=== PATIENT | female | born 1960 ===

== ENCOUNTER 2017-02-15 09:50 | Emergency (ER) | payer OTHER ==
[2017-02-15 09:56] VITALS: RESP 18; TEMP 98.8; BMI 26.4
[2017-02-15] MEDS ORDERED: Sodium Chloride 0.9% 1,000 ML IV SCH (10:30)
[2017-02-15 10:33] LABS: BASO # 0.02 K/mm3 (0.0-2.0); BASO % 0.2 % (0.0-3.0); EOS # 0.2 (0.0-0.7); EOS % 2.4 % (1.5-5.0); GRAN # 7.31 (1.4-6.5); GRAN % 77.5 % (50.0-68.0); HEMOGLOBIN 13.4 gm/dL (12.0-16.0); LYMPH # 1.1 (1.2-3.4); MEAN CELL VOLUME 87.5 fL (80.0-105.0); MEAN CORPUSCULAR HEMOGLOBIN 29.8 pg (25.0-35.0); MEAN CORPUSCULAR HGB CONC 34.1 g/dl (31.0-37.0); MEAN PLATELET VOLUME 9.9 fl (7.0-11.0); MONO # 0.8 (0.1-0.6); MONO % 7.9 % (1.0-6.0); PLATELET COUNT 204 10^3/uL (120.0-450.0); RBC 4.49 10^6/uL (3.5-6.1); RED CELL DISTRIBUTION WIDTH 13.1 % (11.5-14.5); URINE BILIRUBIN NEGATIVE (NEGATIVE); URINE BLOOD TRACE-INTACT (NEGATIVE); URINE GLUCOSE (UA) NEGATIVE (NEGATIVE); URINE LEUKOCYTE ESTERASE NEGATIVE Leu/uL (NEGATIVE); URINE NITRATE NEGATIVE (NEGATIVE); URINE PROTEIN NEGATIVE mg/dL (<30 mg/dL); URINE UROBILINOGEN 0.2 E.U./dL (<1 E.U./dL); WHITE BLOOD COUNT 9.4 10^3/ul (4.5-11.0)
[2017-02-15 10:37] LABS: URINE APPEARANCE CLEAR (CLEAR); URINE COLOR LIGHT YELLOW (YELLOW); URINE RBC NEGATIVE /hpf (0-2); URINE WBC NEGATIVE /hpf (0-6)
[2017-02-15] MEDS ORDERED: Iohexol 240 (50 ml) ONE (10:39)
[2017-02-15 10:41] LABS: ALB/GLOB RATIO 1.3 (1.1-1.8); ALBUMIN 4.3 g/dL (3.0-4.8); ALT/SGPT 27 U/L (7-56); AST/SGOT 23 U/L (15-39); BLOOD UREA NITROGEN 10 mg/dL (7-21); CALCIUM 9.2 mg/dL (8.4-10.5); GFR AFRICAN-AMERICAN > 60; GFR NON-AFRICAN AMERICAN > 60
--- NOTE | 2017-02-15 11:03 | ED PDOC ---
Arrival/HPI - General Chief Complaint: Abdominal Pain Time Seen by Provider: 02/15/17 10:10 Historian: Patient - History of Present Illness Narrative History of Present Illness (Text): 02/15/17 11:03 A 56 year old female, whose past medical history includes asthma, s/p cholecystectomy, presents to the emergency department complaining of left upper quadrant abdominal pain that started yesterday morning. Notes taking advil with minimal relief and pain has worsened and is now constant since yesterday morning. Denies chest pain or shortness of breath. Denies lower abdominal pain. Reports sudden "cramps" diffusely intermittently. Denies urinary symptoms. Denies vaginal bleeding or discharge. States she has prior history of diverticulitis but symptoms appear different than previous episodes as it is higher than past episodes. Pain does not radiate to back or chest. No pleuritic pain. PMD: Dr. Rodriguez Time/Duration: 24 hours Symptom Onset: Sudden Symptom Course: Unchanged Activities at Onset: Rest Context: Home Past Medical History - Provider Review Nursing Documentation Reviewed: Yes - Cardiac Hx Cardiac Disorders: No - Pulmonary Hx Respiratory Disorders: Yes Hx Asthma: Yes Hx Bronchitis: Yes - Neurological Hx Neurological Disorder: Yes Hx Migraine: Yes - HEENT Other/Comment: SINUS SX - Musculoskeletal/Rheumatological Hx Falls: No - Gastrointestinal Hx Diverticulitis: Yes - Psychiatric Hx Substance Use: No - Surgical History Hx Appendectomy: Yes Hx Cholecystectomy: Yes Hx Musculoskeletal Surgery: Yes (left knee) - Anesthesia Hx Anesthesia: Yes Hx Anesthesia Reactions: Yes Hx Malignant Hyperthermia: No Family/Social History - Physician Review Nursing Documentation Reviewed: Yes Family/Social History: No Known Family HX Smoking Status: Former Smoker Hx Alcohol Use: No Hx Substance Use: No Allergies/Home Meds Allergies/Adverse Reactions: Allergies Penicillins Allergy (Verified 02/15/17 09:56) RASH Sulfa (Sulfonamide Antibiotics) Allergy (Verified 02/15/17 09:56) RASH Home Medications: Home Meds Medication Instructions Recorded Confirmed Acetaminophen/Butalbital/Caf 1 tab PO PRN PRN 11/14/15 02/15/17 [Fioricet] Budesonide/Formoterol Fumarate 1 aer IH BID 11/14/15 02/15/17 [Symbicort] Montelukast [Singulair] 10 mg PO HS 11/14/15 02/15/17 Propranolol HCl [Inderal Xl] 80 mg PO DAILY 11/14/15 02/15/17 Review of Systems - Review of Systems Constitutional: absent: Fatigue, Weight Change, Fevers, Night Sweats Eyes: absent: Vision Changes ENT: absent: Hearing Changes Respiratory: absent: SOB Cardiovascular: absent: Chest Pain, [place] Gastrointestinal: Abdominal Pain. absent: Constipation, Diarrhea, Nausea, Vomiting, Appetite Changes, Hematochezia Genitourinary Female: absent: Hematuria, Urine Output Changes Musculoskeletal: absent: Back Pain Skin: absent: Rash Neurological: absent: Headache, Dizziness Hemo/Lymphatic: absent: Easy Bleeding Psychiatric: absent: Anxiety Physical Exam - Physical Exam Narrative Physical Exam (Text): 02/15/17 11:01 Head: Atraumatic. Normocephalic. Eyes: PERRL. EOMI. Conjunctivae are not pale. ENT: Mucous membranes are moist and intact. Oropharynx is clear and symmetric. Neck: Supple. Full ROM. No meningeal signs. Cardiovascular: Regular rate. Regular rhythm. No pathologic murmurs. Distal pulses intact. Pulmonary/Chest: No evidence of respiratory distress. Clear to auscultation bilaterally. No wheezing, rales or rhonchi. Abdominal: Focal tenderness LUQ. No LLQ pain. No R sided abdominal pain. No organomegaly. Good bowel sounds. Localized rebound and guarding to left upper quadrant Back: No CVA tenderness. Extremities: No edema. No cyanosis. No clubbing. Full range of motion in all extremities. No calf tenderness. Skin: Skin is warm and dry. No petechiae. No purpura. Neurological: Alert, awake, and oriented. Normal speech. Motor and sensory exam intact. Psychiatric: Good eye contact. Normal interaction, affect, and behavior. Appropriate. Good insight and interaction. Denies depressive symptoms. Vital Signs Reviewed: Yes Vital Signs Temp Pulse Resp BP Pulse Ox 02/15/17 18:00 66 18 122/71 98 02/15/17 16:35 69 18 124/68 98 02/15/17 15:10 67 18 129/75 98 02/15/17 13:52 67 18 129/75 98 02/15/17 12:14 65 18 128/71 98 02/15/17 10:59 68 18 132/79 97 02/15/17 09:53 98.8 F 76 18 134/82 97 Temperature: Afebrile Blood Pressure: Normal Pulse: Regular Respiratory Rate: Normal Appearance: Positive for: Non-Toxic, Uncomfortable Pain Distress: Moderate Mental Status: Positive for: Alert and Oriented X 3 Medical Decision Making ED Course and Treatment: 02/15/17 10:59 Impression: A 56 year old female with left upper quadrant abdominal pain. Differential Diagnosis included but are not limited to: diverticulitis vs. colitis vs. renal colic Plan: -- CT abd/pelvis -- labs -- Urinalysis -- Pepcid, IV fluids -- Reassess and disposition Prior Visits: Notes and results from previous visits were reviewed. Patient was last seen in the emergency department on 06/16/16 for evaluation of cough and congestion. Progress Notes: Patient's history reviewed and on examination she has severe left upper quadrant abdominal pain. Denies chest pain or sob. Denies lower abdominal pain. Given severity of pain, I have discussed treatment options and imaging studies in depth with patient. She is agreeable to CT with oral contrast although she does not want to have IV narcotics. I have discussed with her alternative pain medication options including Toradol, although due to a past history of severe asthma she does not wish to have IV toradol, but is agreeable to motrin. Based on severity of pain, ct abdomen ordered. 02/15/17 13:00 CT Abdomen and Pelvis without intravenous contrast Creator : Tyrese Hale MD IMPRESSION: Acute diverticulitis of the mid descending colon. No abscess. No free intraperitoneal air. Mural thickening of the inferior rectum. Please correlate with colonoscopy to rule out colonic neoplasm. Mild hepatomegaly with diffuse fatty infiltration of the liver. Status post cholecystectomy. 1.3 cm left adrenal nodule, likely adrenal adenoma. 02/15/17 14:10 I have discussed with patient CT reading WELL LIMITATIONS OF CT in certain diagnosis. On reexamination, patient has persistent severe left upper quadrant abdominal pain. Based on severity of pain, offered IV pain medication, which patient continues to refuse citing fear of addiction and side effect. Advised admission to hospital. Started patient on IV antibiotics. Will consult gastroenterology and surgery based on pain. In laymen's terms I have reviewed all of the patient's labs as well as limitations in laboratory evaluation at times in evaluating severity of disease. Based on SEVERE PERSISTENT PAIN I have discussed with patient risk of abscess, perforation, rupture, sepsis, although currently not hypotensive or febrile, although pain remains severe. I have recommended admission to hospital for surgical evaluation, serial exams, GI consultation as well as for iv hydration and iv antibiotics. I have again reviewed with patient potential limitations of CT given persistent severity of pain. She states that she is comfortable if she is not being palpated. She is initially agreeable to admission, but subsequently communicated to admitting physician Dr. Quiroz and surgical team that she wishes to sign out against medical advice, stating that she has had a PREVIOUS "bad experience" from a prior admission. She understands the recommendation for admission and risks of signing out against medical advice. She is able to repeat back risks as well as potential limitations of lab and imaging studies due to severity of pain with palpation. She received initial dose of iv antibiotics, and has signed out AGAINST MEDICAL ADVICE. She has been given prescription of Levaquin and Metronidazole, and I have discussed with her that given current exam oral antibiotics may not be sufficient treatment and is not recommended treatment plan. Witnesses present, patient expresses understanding of recommended treatment plan and risks. She states she will follow-up with her physician Dr. Rodriguez tomorrow. 02/15/17 18:30 - Lab Interpretations Lab Results: 02/15/17 10:26 02/15/17 10:26 Lab Results 02/15/17 10:26: Sodium 140, Potassium 3.9, Chloride 103, Carbon Dioxide 25, Anion Gap 16, BUN 10, Creatinine 0.7, Est GFR ( Amer) > 60, Est GFR (Non- Af Amer) > 60, Random Glucose 191 H, Calcium 9.2, Total Bilirubin 0.7, AST 23, ALT 27, Alkaline Phosphatase 57, Total Protein 7.5, Albumin 4.3, Globulin 3.2, Albumin/Globulin Ratio 1.3 02/15/17 10:26: Urine Color Light yellow, Urine Appearance Clear, Urine pH 6.0, Ur Specific [place] <= 1.005, Urine Protein Negative, Urine Glucose (UA) Negative, Urine Ketones Negative, Urine Blood Trace-intact H, Urine Nitrate Negative, Urine Bilirubin Negative, Urine Urobilinogen 0.2, Ur Leukocyte Esterase Negative, Urine RBC Negative, Urine WBC Negative 02/15/17 10:26: WBC 9.4 D, RBC 4.49, Hgb 13.4, Hct 39.3, MCV 87.5, MCH 29.8, MCHC 34.1, RDW 13.1, Plt Count 204, MPV 9.9, Gran % 77.5 H, Lymph % (Auto) 12.0 L, [place] % (Auto) 7.9 H, Eos % (Auto) 2.4, Baso % (Auto) 0.2, Gran # 7.31 H, Lymph # 1.1 L, [place] # 0.8 H, Eos # 0.2, Baso # 0.02 I have reviewed the lab results: Yes - RAD Interpretation Radiology Orders: 02/15/17 10:25 ABD & PELVIS PO CONTRAST ONLY [CT] Stat - Medication Orders Current Medication Orders: Sodium Chloride (Sodium Chloride 0.9%) 1,000 mls @ 100 mls/hr IV .Q10H TUAN Last Admin: 02/15/17 10:41 Dose: 100 mls/hr Discontinued Medications Famotidine (Pepcid) 20 mg IVP STAT STA Stop: 02/15/17 10:27 Last Admin: 02/15/17 10:41 Dose: 20 mg Levofloxacin/Dextrose (Levaquin 750mg) 750 mg in 150 mls @ 100 mls/hr IVPB STAT STA Stop: 02/15/17 15:42 Last Admin: 02/15/17 16:24 Dose: 100 mls/hr Metronidazole (Flagyl) 500 mg in 100 mls @ 100 mls/hr IVPB STAT STA PRN Reason: Protocol Stop: 02/15/17 15:12 Last Admin: 02/15/17 14:38 Dose: 100 mls/hr Ibuprofen (Motrin Tab) 600 mg PO STAT STA Stop: 02/15/17 14:11 Last Admin: 02/15/17 14:37 Dose: 600 mg Iohexol (Omnipaque 240 (50 Ml)) Confirm Administered Dose 50 ml .ROUTE .STK-MED ONE Stop: 02/15/17 10:40 - Scribe Statement The provider has reviewed the documentation as recorded by the Aftab Palma Provider Scribe Attestation: All medical record entries made by the Scribe were at my direction and personally dictated by me. I have reviewed the chart and agree that the record accurately reflects my personal performance of the history, physical exam, medical decision making, and the department course for this patient. I have also personally directed, reviewed, and agree with the discharge instructions and disposition. Disposition/Present on Arrival - Present on Arrival Any Indicators Present on Arrival: No History of DVT/PE: No History of Uncontrolled Diabetes: No Urinary Catheter: No History of Decub. Ulcer: No History Surgical Site Infection Following: None - Disposition Have Diagnosis and Disposition been Completed?: Yes Diagnosis: Abdominal pain, Diverticulitis Disposition: AGAINST MEDICAL ADVICE Disposition Time: 18:00 Patient Plan: Discharge Patient Problems: Current Active Problems Problem Status Onset Abdominal pain Acute Diverticulitis Acute Condition: FAIR
[2017-02-15 12:15] VITALS: O2SAT 98
--- NOTE | 2017-02-15 12:56 | CT ---
PROCEDURE: CT Abdomen and Pelvis without intravenous contrast HISTORY: left sided abdominal pain COMPARISON: None. TECHNIQUE: Without contrast.. Contrast Dose: 0 Radiation dose: Total exam DLP = 343.09 mGy-cm. This CT exam was performed using one or more of the following dose reduction techniques: Automated exposure control, adjustment of the mA and/or kV according to patient size, and/or use of iterative reconstruction technique. FINDINGS: LOWER THORAX: Unremarkable. LIVER: Mild diffuse fatty infiltration. No mass. No biliary ductal dilatation. Mild hepatomegaly. Smooth contour. GALLBLADDER AND BILE DUCTS: Status post cholecystectomy. PANCREAS: Unremarkable. No gross lesion or ductal dilatation. SPLEEN: Unremarkable. ADRENALS: 1.3 cm left adrenal low-density nodule, too small to characterize. Likely adenoma. No other adrenal mass. KIDNEYS AND URETERS: Unremarkable. No hydronephrosis. No solid mass. VASCULATURE: Unremarkable. No aortic aneurysm. BOWEL: Acute diverticulitis of the mid descending colon. Mural thickening and pericolonic stranding. No abscess. No free air. There is thickening of the lateroconal fascia. There is circumferential mural thickening of the inferior rectum, nonspecific. Recommend correlation with colonoscopy to rule out neoplasm. There are no other abnormal bowel loops identified. There is no bowel obstruction. APPENDIX: Not identified. PERITONEUM: Unremarkable. No free fluid. No free air. LYMPH NODES: Unremarkable. No enlarged lymph nodes. BLADDER: Unremarkable. REPRODUCTIVE: Unremarkable uterus. BONES: No acute fracture. OTHER FINDINGS: None. IMPRESSION: Acute diverticulitis of the mid descending colon. No abscess. No free intraperitoneal air. Mural thickening of the inferior rectum. Please correlate with colonoscopy to rule out colonic neoplasm. Mild hepatomegaly with diffuse fatty infiltration of the liver. Status post cholecystectomy. 1.3 cm left adrenal nodule, likely adrenal adenoma.
[2017-02-15] MEDS ORDERED: levoFLOXacin 750 mg in D5W 750 MG/150 ML BAG IVPB STA (14:13)
[2017-02-15] MEDS ORDERED: metroNIDAZOLE IV 500 mg/100 ml 500 MG/100 ML BAG IVPB STA (14:13)
[2017-02-15 15:14] LABS: VENOUS BLOOD GAS BASE EXCESS 0.3 mmol/L (0.0-2.0); VENOUS BLOOD GAS PO2 47 mm/Hg (30-55); VENOUS BLOOD PH 7.39 (7.32-7.43)
--- NOTE | 2017-02-15 15:47 | CP.PCM.CON ---
History of Present Illness - History of Present Illness History of Present Illness: General Surgery Consult 56F, with PMHx asthma, s/p cholecystectomy, and three previous episodes of diverticulitis, presents to the ED complaining of left upper quadrant abdominal pain that started yesterday morning. Took advil with minimal relief. Pain worsens with deep breaths. Denies any appetite changes, urinary changes, hematuria, hematochezia, nausea, vomiting or any other complaints at this time. PMH: Asthma, Migranes, Diverticulosis. Last colonoscopy 2 years ago (clean) PSH: Cholecystectomy, appendectomy ALL: PCN Past Patient History - Past Social History Smoking Status: Former Smoker - CARDIAC Hx Cardiac Disorders: No - PULMONARY Hx Respiratory Disorders: Yes Hx Asthma: Yes Hx Bronchitis: Yes - NEUROLOGICAL Hx Neurological Disorder: Yes Hx Migraine: Yes - HEENT Other/Comment: SINUS SX - MUSCULOSKELETAL/RHEUMATOLOGICAL Hx Falls: No - GASTROINTESTINAL Hx Diverticulitis: Yes - PSYCHIATRIC Hx Substance Use: No - SURGICAL HISTORY Hx Appendectomy: Yes Hx Cholecystectomy: Yes Hx Musculoskeletal Surgery: Yes (left knee) - ANESTHESIA Hx Anesthesia: Yes Hx Anesthesia Reactions: Yes Hx Malignant Hyperthermia: No Meds Allergies/Adverse Reactions: Allergies Allergy/AdvReac Type Severity Reaction Status Date / Time Penicillins Allergy RASH Verified 02/15/17 09:56 Sulfa (Sulfonamide Allergy RASH Verified 02/15/17 09:56 Antibiotics) - Medications Medications: Current Medications Sodium Chloride (Sodium Chloride 0.9%) 1,000 mls @ 100 mls/hr IV .Q10H TUAN Last Admin: 02/15/17 10:41 Dose: 100 mls/hr Levofloxacin/Dextrose (Levaquin 750mg) 750 mg in 150 mls @ 100 mls/hr IVPB STAT STA Stop: 02/15/17 15:42 Physical Exam - Constitutional Appears: Non-toxic, No Acute Distress - Head Exam Head Exam: ATRAUMATIC - Eye Exam Eye Exam: EOMI - ENT Exam ENT Exam: Mucous Membranes Moist - Respiratory Exam Respiratory Exam: Clear to Auscultation Bilateral, NORMAL BREATHING PATTERN. absent: Rales, Rhonchi, Wheezes - Cardiovascular Exam Cardiovascular Exam: REGULAR RHYTHM, +S1, +S2 - GI/Abdominal Exam GI & Abdominal Exam: Guarding, Normal Bowel Sounds, Soft, Tenderness Additional comments: Tenderness close to left flank. Voluntary guarding present - Back Exam Back exam: CVA tenderness (L), NORMAL INSPECTION - Neurological Exam Neurological exam: Alert, Oriented x3 - Psychiatric Exam Psychiatric exam: Normal Affect, Normal Mood - Skin Skin Exam: Normal Color, Warm Results - Vital Signs Recent Vital Signs: Last Vital Signs Temp 98.8 F 02/15/17 09:53 Pulse 67 02/15/17 15:10 Resp 18 02/15/17 15:10 BP 129/75 02/15/17 15:10 Pulse Ox 98 02/15/17 15:10 - Labs Result Diagrams: 02/15/17 10:26 02/15/17 10:26 Labs: Laboratory Results - last 24 hr 02/15/17 14:35 pO2 47 VBG pH 7.39 VBG pCO2 42.0 VBG HCO3 25.4 VBG Total CO2 26.7 VBG O2 Sat (Calc) 88.5 H VBG Base Excess 0.3 VBG Potassium 4.1 Sodium 141.0 Chloride 109.0 H Glucose 99 Lactate 0.9 FiO2 21.0 Venous Blood Potassium 4.1 Assessment & Plan - Assessment and Plan (Free Text) Assessment: 56F hx of diverticulitis Left side abdominal pain Plan: - IVF & abx - NPO - Pain control - discussed with patient the importance of IV abx and to be monitored in hospital. Pt does not want to be here and will most likely decided to sign out AMA - Advised to f/u with primary and surgery since this is the 4th episode of diverticulitis. Reoccurrence indicates prophylactic colon resection. Will discuss w/ Dr. Mingo Giron PGY1 - Date & Time Date: 02/15/17 Time: 15:00
[2017-02-15 18:01] VITALS: BP 122/71; PULSE 66
--- NOTE | 2017-02-15 19:50 | CARD ---
APPROVED REPORT EKG Measurement Heart [id number] <Conclusion> Normal sinus rhythm Low voltage QRS Cannot rule out Anterior infarct, age undetermined Abnormal ECG
== END 2017-02-15 18:47 | disposition left against medical advice (07) ==
LOC: ED 09:50 → UNDOADMIN 14:16 → ERH 14:16
DX: R10.12 Left upper quadrant pain (principal); K57.92 Diverticulitis of intestine, part unspecified, without perforation or abscess without bleeding
CPT/HCPCS: 74176; 80053; 81001; 82803; 85025; 87040; 87086; 93005; 96365; 96367; 96375; 99285; J7040; Q9966